=== PATIENT | male | born 1975 | race Two or more races ===

== ENCOUNTER 2022-07-27 22:17 | Emergency (ER) | payer OTHER ==
[~2022-07-27] VITALS: Ht 170.2 cm; Wt 63.6 kg
[2022-07-27] MEDS ORDERED: IOHEXOL 300 MG/ML 100ML BOTTLE IJ ONE (23:54)
[2022-07-28] MEDS ORDERED: TETANUS-DIPTH-ACEL PERTUSSIS 0.5ML SYR Tdap IM ONE (01:15)
[2022-07-28 04:15] VITALS: BP 120/78
[2022-07-28] MEDS ORDERED: AMOX-277 PO (05:02)
== END 2022-07-28 05:23 | disposition home or self-care (01) ==
LOC: ER 22:21
DX: S31.31XA Laceration without foreign body of scrotum and testes, initial encounter (principal); S41.152A Open bite of left upper arm, initial encounter; S71.152A Open bite, left thigh, initial encounter; Z90.49 Acquired absence of other specified parts of digestive tract; Z79.899 Other long term (current) drug therapy; W54.0XXA Bitten by dog, initial encounter; Y93.89 Activity, other specified; Y92.89 Other specified places as the place of occurrence of the external cause; Y99.8 Other external cause status
CPT/HCPCS: 12001; 74177; 90471; 90715; 99285; J2001; Q9967

== ENCOUNTER 2022-08-04 09:21 | Emergency (ER) | payer OTHER ==
[~2022-08-04] VITALS: Ht 170.2 cm; Wt 64.1 kg
[~2022-08-04 09:21] MED LIST: AMOX-277 PO
[2022-08-04 09:39] VITALS: BP 108/69
[2022-08-04] MEDS ORDERED: CEPH-510 PO (10:36)
== END 2022-08-04 10:42 | disposition home or self-care (01) ==
LOC: ER 09:21
DX: S31.31XD Laceration without foreign body of scrotum and testes, subsequent encounter (principal); Z90.49 Acquired absence of other specified parts of digestive tract; Z79.2 Long term (current) use of antibiotics; W54.0XXD Bitten by dog, subsequent encounter